=== PATIENT | male | born 1935 | race Caucasian/White ===

== ENCOUNTER 2020-09-12 12:07 | Observation (INO) | payer OTHER ==
[2020-09-12 12:51] LABS: Absolute Lymphocytes (CBC) 1.4 K/uL (0.7-4.9); Basophils % 0.8 % (0-1.3); Hematocrit 37.8 % (39.6-49.0); RBC Red Blood Cell Count 3.88 M/uL (4.33-5.43)
--- NOTE | 2020-09-12 13:03 | RAD REPORT ---
EXAM DESCRIPTION: [facility]ia Single View09/12/2020 12:45 pm CLINICAL HISTORY: Chest pain COMPARISON: none FINDINGS: The lungs appear clear of acute infiltrate. The heart is normal size. The aorta is tortuo us/ectatic. Scoliosis involves the spine IMPRESSION: No acute abnormalities displayed
[2020-09-12 13:08] LABS: Protime INR 1.02
[2020-09-12] MEDS ORDERED: ASPIRIN 81 MG CHEWABLE TABLET ONE (13:14)
[2020-09-12 13:17] LABS: ALT/SGPT 25 U/L (12-78); AST/SGOT 22 U/L (15-37); Albumin 3.7 g/dL (3.4-5.0); Alkaline Phosphatase 55 U/L (45-117); BUN Blood Urea Nitrogen 13 mg/dL (7-18); Bicarbonate 27 mmol/L (21-32); Bilirubin Direct 0.3 mg/dL (0-0.2); Bilirubin Total 1.8 mg/dL (0.2-1.0); Glucose Level 108 mg/dL (74-106); Lipase 63 U/L (73-393); NT PRO-BNP 82 pg/mL (<450); Protein, Total 7.1 g/dL (6.4-8.2); Sodium Level 141 mmol/L (136-145); Troponin (Emerg Dept Use Only) < 0.02 ng/mL (0.0-0.045)
--- NOTE | 2020-09-12 14:13 | ER ---
Nurse's Notes [facility] Name: Yosvany Lane Age: 85 yrs Sex: Male : 1935 Arrival Date: 09/12/2020 Time: 12:16 Bed 8 Private MD: Diagnosis: Chest pain, unspecified Presentation: 09/12 12:18 Chief complaint: EMS states: [facility] was there for usual check up, states has been tw2 having chest pain x 2 days, states it feels like his normal heartburn which is usual for him, also states pain stays persistent, doesn't get worse or better. Coronavirus screen: At this time, the client does not indicate any symptoms associated with coronavirus-19. Ebola Screen: Patient denies travel to an Ebola-affected area in the 21 days before illness onset. Initial Sepsis Screen: Does the patient meet any 2 criteria? No. Patient's initial sepsis screen is negative. Does the patient have a suspected source of infection? No. Patient's initial sepsis screen is negative. Risk Assessment: Do you want to hurt yourself or someone else? Patient reports no desire to harm self or others. Onset of symptoms was September 12, 2020. 12:18 Method Of Arrival: EMS: [facility] tw2 12:18 Acuity: MAHOGANY 3 tw2 Historical: - Allergies: 12:25 PENICILLINS; tw2 - Home Meds: 14:10 amlodipine 10 mg tab 1 tab once daily [Active]; atenolol 25 mg Oral tab 0.5 tab once jd3 daily [Active]; atorvastatin 20 mg oral tab 1 tab nightly [Active]; finasteride 5 mg oral tab 1 tab once daily [Active]; levofloxacin 500 mg Oral tab 1 tab once daily [Active]; aspirin 81 mg Oral chew 1 tab once daily [Active]; - PMHx: 12:25 GERD; tinnitus, bilateral; BPH; hearing loss; Hypertension; Hyperlipidemia; tw2 - Immunization history:: Adult Immunizations. - Social history:: Smoking status: . Screenin:07 Abuse screen: Denies threats or abuse. Nutritional screening: No deficits noted. jd3 Tuberculosis screening: No symptoms or risk factors identified. Fall Risk Ambulatory Aid- None/Bed Rest/Nurse Assist (0 pts). Gait- Normal/Bed Rest/Wheelchair (0 pts) Mental Status- Oriented to own ability (0 pts). Total Scales Fall Scale indicates No Risk (0-24 pts). Assessment: 12:20 General: Appears in no apparent distress. comfortable, Behavior is calm, cooperative, jd3 appropriate for age. Pain: Complains of pain in epigastric area Pain does not radiate. Quality of pain is described as aching, pressure, Pain began gradually. Neuro: Level of Consciousness is awake, alert, obeys commands, Oriented to person, place, time, situation. Cardiovascular: Capillary refill < 3 seconds Patient's skin is warm and dry. Rhythm is irregular. Respiratory: Airway is patent Respiratory effort is even, unlabored, Respiratory pattern is regular, symmetrical, Denies cough, shortness of breath. GI: Reports indigestion. : No signs and/or symptoms were reported regarding the genitourinary system. EENT: No signs and/or symptoms were reported regarding the EENT system. Derm: Skin is intact, Skin is dry, Skin is normal, Skin temperature is warm. Musculoskeletal: No signs and/or symptoms reported regarding the musculoskeletal system. 12:40 Reassessment: provider at bedside at this time. tw2 13:50 Reassessment: Patient appears in no apparent distress at this time. Patient and/or jd3 family updated on plan of care and expected duration. Pain level reassessed. Patient is alert, oriented x 3, equal unlabored respirations, skin warm/dry/pink. 14:50 Reassessment: Patient appears in no apparent distress at this time. No changes from jd3 previously documented assessment. Patient and/or family updated on plan of care and expected duration. Pain level reassessed. Patient is alert, oriented x 3, equal unlabored respirations, skin warm/dry/pink. 15:54 Reassessment: pt found in hallway, states "im ready to leave this place", pt escorted tw2 back to room, states "im am leaving", pt educated that he was brought here by EMS and has no transportation, pt instructed as to POC and/or need to call family to get encouragement to stay, pt requested IV pulled at this time, IV discontinued, pt refusing to sign AMA form at this time, pt pacing the exam room, security called. 15:57 Reassessment: Lea ROMERO on pts phone with son at this time, pts son states he is tw2 going to move his dad up there with him as he thinks there might be some dementia going on, pts son did talk pt into staying at the hospital tonight for observation d/t his chest pain. 17:00 Reassessment: Patient appears in no apparent distress at this time. Patient and/or tw2 family updated on plan of care and expected duration. Pain level reassessed. Patient is alert, oriented x 3, equal unlabored respirations, skin warm/dry/pink. 18:13 Reassessment: Patient appears in no apparent distress at this time. Patient and/or jd3 family updated on plan of care and expected duration. Pain level reassessed. Patient is alert, oriented x 3, equal unlabored respirations, skin warm/dry/pink. 19:30 General: Appears in no apparent distress. comfortable, Behavior is calm, cooperative, rr5 appropriate for age. Neuro: Level of Consciousness is awake, alert, obeys commands. Cardiovascular: Capillary refill < 3 seconds Patient's skin is warm and dry. Respiratory: Airway is patent Respiratory effort is even, unlabored, Respiratory pattern is regular, symmetrical. Derm: Skin is intact, Skin temperature is warm. Musculoskeletal: No signs and/or symptoms reported regarding the musculoskeletal system. 20:00 Reassessment: Patient and/or family updated on plan of care and expected duration. Pain ea level reassessed. Pt resting with eyes closed, respirations even and unlabored, chest expansions even and symmetrical. 22:12 Reassessment: Patient and/or family updated on plan of care and expected duration. Pain ea level reassessed. Pt resting with eyes closed, respirations even and unlabored. Chest expansions even and symmetrical. Report given to receiving nurse on fourth floor. Pt left ED via stretcher per tech. Pt tolerating well. Vital Signs: 12:18 BP 162 / 86; Pulse 73; Resp 16; Temp 98.9; Pulse Ox 100% on R/A; Weight 81.65 kg (R); tw2 Height 5 ft. 6 in. (167.64 cm); Pain 6/10; 13:18 BP 156 / 83; Pulse 76; Resp 14 S; Pulse Ox 99% on R/A; jd3 14:00 BP 156 / 84; Pulse 77; Resp 17; Pulse Ox 100% on R/A; tw2 15:06 BP 158 / 87; Pulse 88; Resp 16 S; Pulse Ox 99% on R/A; jd3 16:08 BP 156 / 84; Pulse 85; Resp 17 S; Pulse Ox 99% on R/A; jd3 17:00 BP 135 / 77; Pulse 68; Resp 18; Pulse Ox 95% on R/A; tw2 18:13 BP 133 / 71; Pulse 70; Resp 16 S; Pulse Ox 96% on R/A; jd3 19:20 BP 135 / 67; Pulse 66; Resp 18; Temp 98.1; Pulse Ox 98% ; rr5 20:20 BP 110 / 56; Pulse 60; Resp 17; Pulse Ox 96% ; rr5 21:20 BP 127 / 72; Pulse 64; Resp 17; Pulse Ox 97% ; rr5 22:00 BP 123 / 80; Pulse 65; Resp 18; Temp 98; Pulse Ox 97% ; rr5 12:18 Body Mass Index 29.05 (81.65 kg, 167.64 cm) tw2 ED Course: 12:16 Patient arrived in ED. ds1 12:18 Caron Rowan, RN is Primary Nurse. tw2 12:21 Enrique Motley PA is PHCP. cp 12:21 Enrique Lennon MD is Attending Physician. cp 12:21 Triage completed. tw2 12:40 Initial lab(s) drawn, by oh, sent to lab. Inserted saline lock: 20 gauge in right kj1 antecubital area, using aseptic technique. Blood collected. 12:45 EKG done, by ED staff, reviewed by Enrique MENDOZA. kj1 12:48 COVID-19 : Document "Date of Symptom Onset" if Symptomatic. Sent. kj1 13:18 Arm band placed on. jd3 14:11 Gaston Almanza is Hospitalizing Provider. cp 16:07 Patient has correct armband on for positive identification. Placed in gown. Bed in low jd3 position. Call light in reach. Side rails up X2. property assessment monitor on. Pulse ox on. NIBP on. 16:08 Patient maintains SpO2 saturation greater than 95% on room air. jd3 20:11 Primary Nurse role handed off by Caron Rowan, ZOË mw2 20:54 Dano Waller RN is Primary Nurse. rr5 22:12 No provider procedures requiring assistance completed. Patient admitted, IV remains in ea place. Administered Medications: 13:15 Drug: Aspirin Chewable Tablet 324 mg Route: PO; jd3 14:28 Follow up: Response: No adverse reaction tw2 16:35 Drug: Ativan 0.5 mg Route: IVP; Site: left antecubital; jd3 17:30 Follow up: Response: No adverse reaction jd3 Outcome: 14:13 Decision to Hospitalize by Provider. cp 22:12 Admitted to Med/surg accompanied by lea, via stretcher, room 426, with chart, Report ea called to Receiving nurse on fourth floor 22:12 Condition: stable 22:12 Instructed on the need for admit. 22:21 Patient left the ED. ea Signatures: Adry Waters ds1 Enrique Motley PA PA Caron Boyd, RN RN tw2 Melanie Randall, RN RN Dennis Melendez RN RN jd3 Kirk Michelle mw2 Dano Waller RN RN rr5 Audrey Yen kj1 Corrections: (The following items were deleted from the chart) 19:37 15:57 Reassessment: Lea ROMERO on pts phone with son at this time tw2 tw2 22:16 22:00 BP 123 / 80; Pulse 65bpm; Resp 18bpm; Pulse Ox 98%; Temp 98F; rr5 rr5
--- NOTE | 2020-09-12 14:13 | EDPHYS ---
Physician Documentation [facility] Name: Yosvany Lane Age: 85 yrs Sex: Male : 1935 Arrival Date: 09/12/2020 Time: 12:16 Bed 8 Private MD: ED Physician Enrique Lennon HPI: 09/12 12:45 This 85 yrs old Male presents to ER via EMS with complaints of Chest Pain. cp 12:45 The patient or guardian reports chest pain that is located primarily in the substernal cp area. 12:45 Onset: 2-3 days ago. The pain does not radiate. The chest pain is described as sharp. cp Duration: The patient or guardian reports multiple episodes, that are intermittent. Severity of pain: in the emergency department the pain has resolved. Historical: - Allergies: 12:25 PENICILLINS; tw2 - Home Meds: 14:10 amlodipine 10 mg tab 1 tab once daily [Active]; atenolol 25 mg Oral tab 0.5 tab once jd3 daily [Active]; atorvastatin 20 mg oral tab 1 tab nightly [Active]; finasteride 5 mg oral tab 1 tab once daily [Active]; levofloxacin 500 mg Oral tab 1 tab once daily [Active]; aspirin 81 mg Oral chew 1 tab once daily [Active]; - PMHx: 12:25 GERD; tinnitus, bilateral; BPH; hearing loss; Hypertension; Hyperlipidemia; tw2 - Immunization history:: Adult Immunizations. - Social history:: Smoking status: . ROS: 12:46 Constitutional: Negative for body aches, chills, fever, poor PO intake. cp 12:46 Eyes: Negative for injury, pain, redness, and discharge. cp 12:46 ENT: Negative for ear pain, sore throat, difficulty swallowing, difficulty handling secretions. 12:46 Cardiovascular: Positive for chest pain, of the substernal, Negative for edema, palpitations. 12:46 Respiratory: Negative for cough, shortness of breath, wheezing. 12:46 Abdomen/GI: Positive for abdominal pain, of the epigastric area, Negative for vomiting, diarrhea, constipation. 12:46 Back: Negative for radiated pain. 12:46 Skin: Negative for cellulitis, rash. 12:46 Neuro: Negative for altered mental status, headache, syncope, weakness. 12:46 All other systems are negative. Exam: 12:46 ECG was reviewed by the Attending Physician. cp 12:50 Constitutional: The patient appears in no acute distress, alert, awake, comfortable, cp non-diaphoretic, non-toxic, well developed, well nourished. 12:50 Head/Face: Normocephalic, atraumatic. cp 12:50 Eyes: Periorbital structures: appear normal, Conjunctiva: normal, no exudate, no injection, Sclera: no appreciated abnormality, Lids and lashes: appear normal, bilaterally. 12:50 ENT: External ear(s): are unremarkable, Nose: is normal, Mouth: Lips: moist, Oral mucosa: moist, Posterior pharynx: Airway: no evidence of obstruction, patent. 12:50 Neck: ROM/movement: is normal, is supple, without pain, no range of motions limitations. 12:50 Chest/axilla: Inspection: normal, Palpation: is normal, no crepitus, no tenderness. 12:50 Cardiovascular: Rate: normal, Rhythm: regular, Pulses: Pulses are 2+ in right radial artery and left radial artery. Edema: is not appreciated, JVD: is not appreciated. 12:50 Respiratory: the patient does not display signs of respiratory distress, Respirations: normal, no use of accessory muscles, no retractions, labored breathing, is not present, Breath sounds: are clear throughout, no decreased breath sounds, no stridor, no wheezing. 12:50 Abdomen/GI: Inspection: abdomen appears normal, Bowel sounds: active, all quadrants, Palpation: soft, in all quadrants, nontender, in all quadrants. 12:50 Back: pain, is absent, ROM is normal. 12:50 Neuro: Orientation: to person, place \\T\\ time. Mentation: is normal, Motor: moves all fours, strength is normal. Vital Signs: 12:18 BP 162 / 86; Pulse 73; Resp 16; Temp 98.9; Pulse Ox 100% on R/A; Weight 81.65 kg (R); tw2 Height 5 ft. 6 in. (167.64 cm); Pain 6/10; 13:18 BP 156 / 83; Pulse 76; Resp 14 S; Pulse Ox 99% on R/A; jd3 14:00 BP 156 / 84; Pulse 77; Resp 17; Pulse Ox 100% on R/A; tw2 15:06 BP 158 / 87; Pulse 88; Resp 16 S; Pulse Ox 99% on R/A; jd3 16:08 BP 156 / 84; Pulse 85; Resp 17 S; Pulse Ox 99% on R/A; jd3 17:00 BP 135 / 77; Pulse 68; Resp 18; Pulse Ox 95% on R/A; tw2 18:13 BP 133 / 71; Pulse 70; Resp 16 S; Pulse Ox 96% on R/A; jd3 19:20 BP 135 / 67; Pulse 66; Resp 18; Temp 98.1; Pulse Ox 98% ; rr5 20:20 BP 110 / 56; Pulse 60; Resp 17; Pulse Ox 96% ; rr5 21:20 BP 127 / 72; Pulse 64; Resp 17; Pulse Ox 97% ; rr5 22:00 BP 123 / 80; Pulse 65; Resp 18; Temp 98; Pulse Ox 97% ; rr5 12:18 Body Mass Index 29.05 (81.65 kg, 167.64 cm) tw2 MDM: 12:26 Patient medically screened. cp 14:12 The patient was given aspirin in the Emergency Department. cp 14:12 Data reviewed: vital signs, nurses notes, lab test result(s), EKG, radiologic studies, cp plain films. Test interpretation: by ED physician or midlevel provider: ECG, plain radiologic studies. Counseling: I had a detailed discussion with the patient and/or guardian regarding: the historical points, exam findings, and any diagnostic results supporting the discharge/admit diagnosis, lab results, radiology results, the need for further work-up and treatment in the hospital. 09/12 12:29 Order name: Basic Metabolic Panel cp 09/12 12:29 Order name: CBC with Diff cp 09/12 12:29 Order name: LFT's cp 09/12 12:29 Order name: Magnesium cp 09/12 12:29 Order name: NT PRO-BNP cp 09/12 12:29 Order name: PT-INR cp 09/12 12:29 Order name: Troponin (emerg Dept Use Only) cp 09/12 12:29 Order name: Lipase cp 09/12 12:46 Order name: COVID-19 : Document "Date of Symptom Onset" if Symptomatic. cp 09/12 12:53 Order name: CBC with Automated Diff; Complete Time: 13:36 EDMS 09/12 13:36 Interpretation: Normal except: RBC 3.88; HGB 12.6; HCT 37.8. 09/12 13:18 Order name: Basic Metabolic Panel; Complete Time: 13:36 EDMS 09/12 13:36 Interpretation: Normal except: CL 108; GLUC 108; GFR 86. 09/12 13:18 Order name: Liver (Hepatic) Function; Complete Time: 13:36 EDMS 09/12 13:36 Interpretation: Normal except: BILIT 1.8; BILID 0.3. 09/12 13:18 Order name: Troponin (Emerg Dept Use Only); Complete Time: 13:36 EDMS 09/12 13:18 Order name: NT PRO-BNP; Complete Time: 13:36 EDMS 09/12 12:29 Order name: XRAY Chest (1 view) 09/12 12:29 Order name: EKG; Complete Time: 12:29 09/12 12:29 Order name: Cardiac monitoring; Complete Time: 12:48 09/12 12:29 Order name: EKG - Nurse/Tech; Complete Time: 12:48 09/12 12:29 Order name: IV Saline Lock; Complete Time: 12:48 09/12 13:03 Order name: RAD; Complete Time: 13:36 EDMS 09/12 13:18 Order name: Magnesium; Complete Time: 13:36 EDMS 09/12 13:18 Order name: Lipase; Complete Time: 13:36 EDMS 09/12 13:25 Order name: CORONAVIRUS EDLA 09/12 13:38 Order name: US Abdomen Limited: liver and gallbladder 09/12 13:39 Order name: Protime (+INR); Complete Time: 15:52 EDMS 09/12 14:12 Order name: SARS-COV-2 RT PCR; Complete Time: 15:52 EDMS 09/12 15:05 Order name: US; Complete Time: 15:52 EDMS 09/12 15:53 Interpretation: Report reviewed. 09/12 16:24 Order name: Diet Heart Healthy; Complete Time: 16:24 09/12 12:29 Order name: Labs collected and sent; Complete Time: 12:48 09/12 12:29 Order name: O2 Per Protocol; Complete Time: 12:55 09/12 12:29 Order name: O2 Sat Monitoring; Complete Time: 12:55 cp EC:46 Rate is 64 beats/min. Rhythm is regular. TX interval is normal. QRS interval is cp prolonged at 138 msec. QT interval is normal. T waves are Inverted in leads III, aVR. Interpreted by me. Reviewed by me. Administered Medications: 13:15 Drug: Aspirin Chewable Tablet 324 mg Route: PO; jd3 14:28 Follow up: Response: No adverse reaction tw2 16:35 Drug: Ativan 0.5 mg Route: IVP; Site: left antecubital; jd3 17:30 Follow up: Response: No adverse reaction jd3 Disposition: 09/13 07:54 Co-signature as Attending Physician, Enrique Lennon MD I agree with the assessment and elsi plan of care. Disposition: 09/12/20 14:13 Hospitalization ordered by Gaston Almanza for Observation. Preliminary diagnosis is Chest pain, unspecified. - Bed requested for Telemetry/MedSurg (observation). - Status is Observation. ea - Condition is Stable. - Problem is new. - Symptoms have improved. Signatures: Dispatcher [employer] EDMarie Ball RN RN dw Anderson, Corey, MD MD cha Page, Corey, REJI PA cp Caron Rowan RN ZOË tw2 Melanie Randall RN Dennis Aldridge ea, RN RN jd3 Corrections: (The following items were deleted from the chart) 09/12 19:14 14:13 Hospitalization Ordered by Gaston Almanza for Observation. Preliminary diagnosis dw is Chest pain, unspecified. Bed requested for Telemetry/MedSurg (observation). Status is Observation. Condition is Stable. Problem is new. Symptoms have improved. cp 22:21 19:14 09/12/2020 14:13 Hospitalization Ordered by Gaston Almanza for Observation. ea Preliminary diagnosis is Chest pain, unspecified. Bed requested for Telemetry/MedSurg (observation). Status is Observation. Condition is Stable. Problem is new. Symptoms have improved. dw
--- NOTE | 2020-09-12 15:04 | RAD REPORT ---
EXAM DESCRIPTION: US - Abdomen Exam Limited - 09/12/2020 2:29 pm CLINICAL HISTORY: Elevated bilirubin COMPARISON: None. FINDINGS: The gallbladder wall is not thickened. A gallstone is not seen. The biliary tree is normal caliber. IMPRESSION: Unremarkable gallbladder ultrasound.
[2020-09-12] MEDS ORDERED: LORazepam 2 MG/ML VIAL ONE (16:43)
--- NOTE | 2020-09-12 17:47 | P.HP ---
Certification for Inpatient Patient admitted to: Observation With expected LOS: <2 Midnights Practitioner: I am a practitioner with admitting privileges, knowledge of patient current condition, hospital course, and medical plan of care. Services: Services provided to patient in accordance with Admission requirements found in Title 42 Section 412.3 of the Code of Federal Regulations Patient History Date of Service: 09/12/20 Reason for admission: Chest pain History of Present Illness: 85-year-old with a known history of GERD, hypertension, hyperlipidemia presented to the emergency department with a complaint of chest pain of 2 days duration. Patient described an anterior chest pain, intermittent in nature, feels like his heart burn, nonradiating, no known relieving or aggravating factors. Patient denies any nausea or diaphoresis or palpitation associated with it. His initial troponin in the ED is negative. Chest x-ray shows no acute disease. EKG demonstrates right bundle branch block, nondiagnostic for ischemia. Patient is hospitalized for ACS rule out. - Past Medical/Surgical History -: GERD -: Hypertension -: Hyperlipidemia -: BPH -: Hearing loss - Family History Father -: Hypertension - Social History Smoking Status: Never smoker Alcohol use: No CD- Drugs: No Caffeine use: No Place of Residence: Home Review of Systems Other: Except as documented, all other systems reviewed and negative. Physical Examination - Physical Exam General: Alert, In no apparent distress, Oriented x3 HEENT: Atraumatic, Normocephalic, PERRLA, Mucous membr. moist/pink, EOMI, Sclerae nonicteric Neck: Supple, JVD not distended Respiratory: Clear to auscultation bilaterally, Normal air movement Cardiovascular: No edema, Normal pulses, Regular rate/rhythm, Normal S1 S2 Gastrointestinal: Normal bowel sounds, Soft and benign, Non-distended, No tenderness Musculoskeletal: No swelling, No tenderness Integumentary: No rashes, No erythema Neurological: Normal speech, Normal strength at 5/5 x4 extr, Cranial nerves 3-12 intact - Studies Laboratory Data (last 24 hrs) 09/12/20 12:37: PT 11.7, INR 1.02 09/12/20 12:37: WBC 7.20, Hgb 12.6 L, Hct 37.8 L, Plt Count 282 09/12/20 12:37: Sodium 141, Potassium 4.0, BUN 13, Creatinine 0.85, Glucose 108 H, Magnesium 2.0, Total Bilirubin 1.8 H, AST 22, ALT 25, Alkaline Phosphatase 55, Lipase 63 L Assessment and Plan - Problems (Diagnosis) (1) Chest pain Current Visit: Yes Status: Acute (2) Hypertension Current Visit: Yes Status: Chronic (3) Hyperlipidemia Current Visit: Yes Status: Chronic (4) GERD (gastroesophageal reflux disease) Current Visit: Yes Status: Chronic - Plan Place patient under observation. Trend troponin Will treat with aspirin, metoprolol, statin. Continue home antihypertensives. Check lipid profile. Would recommend stress test as an outpatient pending troponin result. Patient bilirubin was elevated but liver ultrasound was unremarkable. Check LFT in a.m. - Advance Directives Does patient have a Living Will: No Does patient have a Durable POA for Healthcare: No
[2020-09-12 23:10] VITALS: BMI 28.9
[2020-09-12] MEDS ORDERED: MORPHINE 2 MG/ML SYR IV PRN (23:11)
[2020-09-12] MEDS ORDERED: NITROGLYCERIN 0.4 MG/TAB SL PRN (23:11)
[2020-09-13 00:13] LABS: HDL Cholesterol 46 mg/dL (40-60); LDL Cholesterol, Calculated 102 (<130); Troponin I < 0.02 ng/mL (0.0-0.045)
[2020-09-13 03:54] LABS: Absolute Lymphocytes (CBC) 1.6 K/uL (0.7-4.9); Basophils % 0.8 % (0-1.3); Hematocrit 37.9 % (39.6-49.0); Lymphocytes % 22.1 % (15.3-44.8); MPV 9.1 fL (7.6-11.3); RBC Red Blood Cell Count 3.89 M/uL (4.33-5.43)
[2020-09-13 04:15] VITALS: O2SAT 98
[2020-09-13 05:32] LABS: Albumin 3.5 g/dL (3.4-5.0); Bilirubin Total 1.9 mg/dL (0.2-1.0); Potassium 4.1 mmol/L (3.5-5.1); Protein, Total 6.8 g/dL (6.4-8.2)
[2020-09-13] MEDS ORDERED: PNEUMOCOCCAL VACCINE 0.5 ML IMVAC ONE (08:00)
[2020-09-13] MEDS ORDERED: INFLUENZA VACCINE (for 3y+) 0.5 ML DOSE IMVAC ONE (08:00)
[2020-09-13] MEDS ORDERED: ASPIRIN EC 81 MG TAB PO SCH (09:00)
[2020-09-13] MEDS ORDERED: ENOXAPARIN 40 MG/0.4 ML SQ SCH (09:00)
[2020-09-13 11:59] VITALS: BP 136/78; TEMP 98
--- NOTE | 2020-09-13 12:53 | P.DS ---
Admission Date: 09/12/20 Discharge Date: 09/13/20 Disposition: ROUTINE DISCHARGE Discharge Condition: FAIR Reason for Admission: Chest pain - Problems (1) Chest pain Status: Acute (2) Hypertension Status: Chronic (3) Hyperlipidemia Status: Chronic (4) GERD (gastroesophageal reflux disease) Status: Chronic Brief History of Present Illness: 85-year-old with a known history of GERD, hypertension, hyperlipidemia presented to the emergency department with a complaint of chest pain of 2 days duration. Patient described an anterior chest pain, intermittent in nature, feels like his heart burn, nonradiating, no known relieving or aggravating fact ors. Patient denies any nausea or diaphoresis or palpitation associated with it. His initial troponin in the ED is negative. Chest x-ray shows no acute disease. EKG demonstrates right bundle branch block, nondiagnostic for ischemia. Patient is hospitalized for ACS rule out. Hospital Course: Patient placed under observation. Troponin trended came back negative. Patient was asymptomatic, chest pain-free during the hospital stay. Vitals were stable. ACS ruled out. Case discussed with Dr. Saavedra will arrange for outpatient stress test. Patient deemed clinically stable for discharge. Vital Signs/Physical Exam: Temp Pulse Resp BP Pulse Ox 98.0 F 88 18 136/78 97 09/13/20 11:58 09/13/20 11:58 09/13/20 11:58 09/13/20 11:58 09/13/20 11:58 General: Alert, In no apparent distress, Oriented x3 Neck: Supple, JVD not distended Respiratory: Clear to auscultation bilaterally, Normal air movement Cardiovascular: No edema, Regular rate/rhythm, Normal S1 S2 Gastrointestinal: Soft and benign, Non-distended, No tenderness Musculoskeletal: No swelling, No tenderness Integumentary: No rashes Neurological: Normal speech, Normal strength at 5/5 x4 extr, Cranial nerves 3-12 intact Laboratory Data at Discharge: WBC 7.10 K/uL (4.3-10.9) 09/13/20 03:23 Hgb 12.5 g/dL (13.6-17.9) L 09/13/20 03:23 Hct 37.9 % (39.6-49.0) L 09/13/20 03:23 Plt Count 266 K/uL (152-406) 09/13/20 03:23 PT 11.7 SECONDS (9.5-12.5) 09/12/20 12:37 INR 1.02 09/12/20 12:37 Sodium 140 mmol/L (136-145) 09/13/20 03:14 Potassium 4.1 mmol/L (3.5-5.1) 09/13/20 03:14 BUN 12 mg/dL (7-18) 09/13/20 03:14 Creatinine 0.82 mg/dL (0.55-1.3) 09/13/20 03:14 Glucose 120 mg/dL (74-106) H 09/13/20 03:14 Magnesium 2.0 mg/dL (1.8-2.4) 09/12/20 12:37 Total Bilirubin 1.9 mg/dL (0.2-1.0) H 09/13/20 03:14 AST 23 U/L (15-37) 09/13/20 03:14 ALT 23 U/L (12-78) 09/13/20 03:14 Alkaline Phosphatase 55 U/L (45-117) 09/13/20 03:14 Troponin I < 0.02 ng/mL (0.0-0.045) 09/13/20 03:14 Triglycerides 139 mg/dL (<150) 09/12/20 23:41 Cholesterol 176 mg/dL (<200) 09/12/20 23:41 HDL Cholesterol 46 mg/dL (40-60) 09/12/20 23:41 Cholesterol/HDL Ratio 3.83 09/12/20 23:41 Lipase 63 U/L (73-393) L 09/12/20 12:37 Home Medications: Amlodipine Besylate 10 mg PO DAILY 09/13/20 Aspirin [Aspirin EC 81 MG] 81 mg PO DAILY 09/13/20 Atenolol [Tenormin] 12.5 mg PO DAILY 09/13/20 Atorvastatin Calcium [Lipitor*] 20 mg PO BEDTIME 09/13/20 Finasteride [Proscar*] 5 mg PO DAILY 09/13/20 Nitroglycerin [Nitrostat*] 0.4 mg SL UD PRN #25 tab 09/13/20 New Medications: Nitroglycerin [Nitrostat*] 0.4 mg SL UD PRN #25 tab PRN Reason: Pain Scale 2-4 (Mild) Followup: OOT,BoydOT [Primary Care Provider] -
--- NOTE | 2020-09-14 08:34 | EKG ---
Test Date: 2020-09-12 Test Time: 12:29:07 Job Foreman: HEATHER MEASUREMENT RESULTS: Intervals: Rate: 64 NC: 132 QRSD: 138 QT: 406 QTc: 418 [place]: P: 48 NC: 132 QRS: -63 T: 18 INTERPRETIVE STATEMENTS: Sinus rhythm with marked sinus arrhythmia Right bundle branch block Left anterior fascicular block Bifascicular block Moderate voltage criteria for LVH, may be normal variant Cannot rule out Septal infarct, age undetermined Abnormal ECG No previous ECG available for comparison Electronically Signed On 09-14-20 08:29:42 EVENTS ADMINISTRATIVE ASSISTANT by Salomon Saavedra
== END 2020-09-13 14:31 | disposition home or self-care (01) ==
LOC: ER 12:07 → ERHOLD 17:52 → 4TH 20:30
PROVIDERS: ADMIT Internal Medicine; ATTEND Internal Medicine
DX: R07.9 Chest pain, unspecified (principal); I10 Essential (primary) hypertension; K21.9 Gastro-esophageal reflux disease without esophagitis; E78.5 Hyperlipidemia, unspecified; N40.0 Benign prostatic hyperplasia without lower urinary tract symptoms; H91.90 Unspecified hearing loss, unspecified ear; H93.13 Tinnitus, bilateral; Z79.82 Long term (current) use of aspirin; Z88.0 Allergy status to penicillin; Z82.49 Family history of ischemic heart disease and other diseases of the circulatory system
CPT/HCPCS: 93005; 85025 ×2; 80048; 36415; 83735; 85610; 80061; 80076; 84484 ×3; 83690; 80053; 83880; 71045; 76705; 96374; 99285; U0003; J1650; G0378